=== PATIENT | male | born 1945 ===

== ENCOUNTER 2024-09-13 10:20 | Outpatient (CLI) | payer MEDICARE, OTHER, SELFPAY ==
--- OUTSIDE RECORDS SUMMARY | 2024-09-13 11:55 | XMS_ITS | Clinical Summary ---
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 Gender Identity Not on file Sexual Orientation Not on file Plan of Treatment Health Maintenance Due Date Last Done Comments Hepatitis C Virus (HCV) Screening 1945 TdaP Immunization 1945 Zoster Immunization (1 of 2) 1994 Pneumococcal Immunization (50+ years) (2 of 2 - PPSV23) 06/20/2015 06/20/2014 Respiratory Syncytial Virus (RSV) Immunization (Adult) (1 - 1-dose 75+ series) 11/10/2019 Influenza Immunization (#1) 02/08/202404/09, 07/01/2018 SARS-COV-2 Immunization ( season) 2024 Pneumococcal Immunization Combined Discontinued 06/20/2014 Hepatitis B Immunization Aged Out No longer eligible based on patient's age to complete this topic Meningococcal Immunization (ACWY) Aged Out No longer eligible based on patient's age to complete this topic Rotavirus Immunization Aged Out No lo nger eligible based on patient's age to complete this topic
--- OUTSIDE RECORDS SUMMARY | 2024-09-13 11:55 | XMS_ITS | Continuity of Care Document ---
Author Organization [facility] Address [address] [place] [address] [facility] [address] [place] [address] Phone Care Team Providers Care Cross Tie Turner Name Role Phone Juan Albertosimranalaynayoshi Kapil Unavailable Unavailable Procedures Procedure Date Eye Exam, New Patient Refraction Advance Directives Directive Yes / No Effective Date File Name No Information Encounters Encounter Description Practice Location Reason(s) For Visit Diagnoses Date Provider Providers Copied on Encounter [facility], [address], [place], [place], [id number], tel:[phone] [facility] No Information [address] [facility] [address], [place], [address], [place]. tel:[phone] Referring Provider: Isai Couch, [address] [place] [address], [facility]. tel:[phone] Family History Family Member Type Diagnosis Age At Onset No Information Payers Payer name Insurance type Covered democrat ID Authoriza tion(s) [facility] Commercial CI [id number] Social History Type Description Quantity Date Captured Comments Sex Male Smoking Status No Information Chief Complaint And Reason For Visit No Information Reason For Referral Reason For Referral No Information History Of Present Illness Encounter Date Complaint History Of Prese nt Illness No Information Functional Status Date Functional Assessmen t No Information Instructions Date Instruction Additional Infor mation No Information Assessments Type Assessment Date No Information Patient Care Teams Name Effective Dates (start - stop) Status Members No Information
--- OUTSIDE RECORDS SUMMARY | 2024-09-13 11:56 | XMS_ITS | CONTINUITY OF CARE DOCUMENT ---
Author Name smitha bone Address Unknown Organization [facility] Address [address] [place] [address] [address] [place] [address] Phone [phone] Care Team Providers Care Plaster Maker Name Role Phone Byron Kitchen MD Unavailable [phone] MIHCAEL SHANNON MD Unavailable [phone] SHIVA COHEN, MICHAEL Unavailable PROBLEMS Condition Status Date Provider Notes Aortic stenosis, non-rheumatic active Calli Blackburn INSURANCE PROVIDERS Payer name Policy type / Coverage type [place] red green party ID A[employer] MEDICARE ADVANTAGE HMO-POS HMO [id number] TREATMENT PLAN Date Name Complete Echo
--- OUTSIDE RECORDS SUMMARY | 2024-09-13 11:56 | XMS_ITS | Clinical Summary ---
Author Organization [facility] Address [address] [place] [address] Care Team Providers Care Die Attaching Machine Tender Name Role Phone Chriss Modi MD Primary Care Provider Source Comments [facility],non-owned Affiliates and Associated Physician Practices is amultiple site organization consisting of ambulatory clinics and hospital sitesin [place], [place], [place] and [place]. This disclosure is being madepursuant to the Care Everywhere program and may not contain all information available regarding this patient. Last updated 18.[facility] Allergies Active Allergy Reactions Criticality Noted Date Comments Caffeine Rash Medium 07/04/2010 Hydrochlorothiazide Other 05/05/2007 Lisinopril Dizziness 04/06/2014 Penicillin G Rash Medium 07/04/2010 Penicillins Itching 05/09/2023 Pravastatin Nausea and/or Vomiting 05/10/2003 Terazosin Nausea and/or Vomiting,Dizziness Medium Medications * Be aware that medications may not be up to date on this document. Alwaysverify current medications with the patient. Medication Sig Dispensed Refills Start Date End Date Status melatonin 5 MG tablet Take 1 (one) tablet by mouth at bedtime Active polyethylene glycol 3350 (MiraLax) 17 GM/SCOOP powder Take 0.5 Scoops by mouth once daily 07/30/2022 Active Ferrous Sulfate 324 MG TBEC Take 324 mg by mouth once daily 10/09/2022 Active multivitamin daily tablet Take 1 (one) tablet by mouth once daily 03/18/2023 Active albuterol HFA (Proventil; Ventolin; Proair) 108 (90 Base) MCG/ACT inhaler Take 2 (two) puffs by mouth 4 times daily as needed 02/13/2023 Active allopurinol (Zyloprim) 100 MG tablet Take 1 (one) tablet by mouth once daily 02/13/2023 Active aspirin EC (Ecotrin) 325 MG tablet Take 1 (one) tablet by mouth once daily 07/30/2022 Active atorvastatin (Lipitor) 80 MG tablet Take 1 (one) tablet by mouth once daily 01/29/2023 Active carvedilol (Coreg) 25 MG tablet Take 1.5 (one and one-half) tablets by mouth once daily 08/06/2022 Active fluticasone-salmetero l (Advair/Wixela) 250-50 MCG/ACT inhaler Inhale 1 (one) puff by mouth 2 times daily 11/12/2022 Active gabapentin (Neurontin) 100 MG capsule Take 1 (one) capsule by mouth at bedtime 08/16/2022 Active levothyroxine (Synthroid) 25 MCG tablet Take 1 (one) tablet by mouth every morning Before breakfast 02/13/2023 Active omeprazole (PriLOSEC) 40 MG capsule Take 1 (one) capsule by mouth every morning Before breakfast 10/09/2022 Active sildenafil (Viagra) 100 MG tablet Take 1 (one) tablet by mouth as needed Once weekly (limit of 4 doses in 30 days) 02/26/2023 Active tiotropium (Spiriva Respimat) 2.5 MCG/ACT inhaler Inhale 2 (two) puffs by mouth once daily 11/12/2022 Active lisinopril (Prinivil; Zestril) 10 MG tablet Take 1 (one) tablet by mouth once daily Unsure of dosage Active Active Problems Problem Noted Date Diagnosed Date Hypothyroidism 10/11/2023 10/11/2023 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 Hypertension 10/10/2023 HLD (hyperlipidemia) 10/10/2023 CAD (coronary artery disease) 10/10/2023 History of abdominal aortic aneurysm 10/10/2023 Aortic valve stenosis 06/10/2023 10/11/2023 History of cerebrovascular accident 10/02/2022 10/11/2023 Abdominal aortic aneurysm 05/28/20222023 Gout 11/28/2021 10/11/2023 Social History Tobacco Use Types Packs/Day Years Used Date Smoking Tobacco: Former Cigarettes Q uit: 1994 Smokeless Tobacco: Never Alcohol Use Standard Drinks/Week Comments Yes 14 (1 standard drink = 0.6 oz pure alcohol) Aleks Hair 2 mixed drinks per day 10/10/2023 AUDIT-C Answer Date Recorded Q1: How often do you have a drink containing alcohol? Never 05/09/2023 Q2: How many drinks containi ng alcohol do you have on a typical day when you are drinking? Patient does not drink Q3: How often do you have si x or more drinks on one occasion? Never 05/09/2023 Sex and Gender Information Value Date Recorded Sex Assigned at Not on file Gender Identity Not on file Sexual Orientation Not on file Last Filed Vital Signs Vital Sign Reading Time Taken Comments Blood Pressure 140/67 10/11/2023 12:54 PM CDT Pulse 99 10/11/2023 12:54 PM CDT Temperature 36.3 C (97.4 F) 10/11/2023 12:54 PM CDT Respiratory Rate 18 10/11/2023 12:54 PM CDT Oxygen Saturation 95% 10/11/2023 12:54 PM CDT Inhaled Oxygen Concentration - - Weight 70.4 kg (155 lb 3.2 oz) 10/10/2023 9:45 A M CDT Height 175.3 cm (5' 9 ) 10/10/2023 9:45 AM CDT Body Mass Index 22.92 10/10/2023 9:45 AM CDT Plan of Treatment Health Maintenance Due Date Last Done Comments DTAP/TDAP/TD VACCINES (1 - Tdap) 11/10/1964 PNEUMOCOCCAL VACCINE 50+ (1 of 2 - PCV) 11/10/1963 ZOSTER VACCINE (1 of 2) 1994 Respiratory Syncytial Virus (RSV) Vaccine Pt: or over 60 yrs (1 - 1-dose 75+ series) 11/10/2019 COVID-19 VACCINE (4 - 2023-2 5 season) 2024 04/17/2021, 08/05/2020, 07/15/2020 INFLUENZA VACCINE (#1) 2024 3, 03/18/2022, 03/13/2021 DEPRESSION SCREENING 06/09/2024 MEDICARE AWV CALENDAR YEAR 2024 HEPATITIS B VACCINE Aged Out No longe r eligible based on patient's age to complete this topic HIB VACCINE Aged Out No longer eligi ble based on patient's age to complete this topic HPV VACCINE Aged Out No longer eligi ble based on patient's age to complete this topic MENINGOCOCCAL (Group B) VACCINE SHARED DECISION-MAKING Aged Out No longer eligible based on patient's age to complete this topic MENINGOCOCCAL GROUPS A/C/Y/W VACCINE Aged Out No longer eligible b ased on patient's age to complete this topic Advance Directives * Full Code (Latest Code Status on File) Date Activated Date Inactivated Comments 10/10/2023 5:39 PM 10/11/2023 5:31 PM Care Teams Die Attaching Machine Tender Relationship Specialty Start Date End Date Chriss Modi MD [address] [facility] [id number] PCP - General Radiology 10/10/23
--- OUTSIDE RECORDS SUMMARY | 2024-09-13 11:56 | XMS_ITS | Data Portability ---
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 Chapter 1 of educational DVD was shown. PSG is medically necessary to determine the degree of and management of sleep apnea. We discussed with the patient the impact of weight on: Sleep disordered breathing CVA Hyperlipidemia Hypertension CAD GERD CKD Gout We discussed with the patient the benefit of PAP therapy on: Sleep disordered breathing CVA PTSD Hypertension PASP 39 mmHg GERD CKD ED Educated the patient on sleep hygiene measures. Relaxing rituals to rest easy, understanding foods with positive and negative impact on sleep, creating a peaceful sleep environment, timing of exercise, using herbal sleep aids, and practicing sleep-friendly meditation were covered. To determine how much sleep is needed, the patient will assess where he falls on the spectrum, examine what lifestyle factors such as work schedules and stress are affecting the quality and quantity of sleep. In general, adults need 7-9 hours of sleep. Educated the patient regarding foods that promote sleep. These include but are not limited to cherries, bananas, toast, oatmeal, and warm milk. Educated the patient regarding foods and drinks to avoid before bedtime. These include but are not limited to aged cheese, chocolate, spicy foods, tomato-based sauces, soy, ginseng tea and processed meat. Advocated influenza vaccination annually and pneumonia vaccination JOY. Advocated weight loss through diet and exercise. Patient's ideal body weight according to height and gender is up to 160 lbs. Encouraged patient to adjust caloric intake to maintain/achieve ideal body weight, emphasizing on fruits, vegetables, whole grains, and fat-free or low-fat products. These include lean meats, poultry, fish, beans, eggs, and nuts and foods that are low in saturated fats, trans-fats, cholesterol, salt (sodium), and glycemic index. Stressed the importance of regular exercise up to the patient's capacity limits. In this case, we recommend 20 min daily walking, 2 days a week of resistance training. Patient to monitor BP daily and bring records to PCP for further management. Follow-up: 1 week after diagnostic sleep study [email or web address] Not available 08/17/2024 11:51:19 Plan of Treatment Reminders Order Date Submit Date Provider Last Modified By Organization Details Last Modified Time Details Appointments None recorded. Lab lipid panel, serum 2023 024 [id number] [facility], [address] , [place], [address], 4 16:39:09 CMP, serum or plasma 2023 024 [facility], [address], [place], [address], 4 16:39:09 TSH, serum or plasma 2023 024 [email or web address] [facility], [address], [place], [address], 4 16:39:10 T4, free, serum 2023 024 [facility], [address] , [place], [address], 4 16:39:10 Referral None recorded. Procedures None recorded. Surgeries None recorded. Imaging polysomno gram, diagnosti c, 6 yrs or older - Please call patient to schedule. 2024 025 [facility] ([facility]), [address] [facility] [address], [place], [address], 5 15:12:24 Medication Orders None recorded. Patient TargetsNo targets recorded. Patient Instructions Encounter Date Encounter Id Patient Instructions Last Modified By Organization Details Last Modified Time 06/11/2023 [id number] Follow-up gandhi ry artery disease -hypertension -abdominal aortic aneurysm status post endovascular repair an actual leak seal. -hyperlipidemia-hypo thyroidism. Clinically stable at this time. Will continue on current Rx the cardiac murmur is apparently somewhat new. Will set up for an echocardiogram to further assess. Overall is doing well otherwise. Will continue on current Rx and follow-up in four months. FDA recommendations of a influenza, RSV, COVID, pneumococcal immunizations strongly advised. Portions of the record may have been created with voice recognition software. Occasional wrong-word or esbsa-s-sotn substitutions may have occurred due to the inherent limitations of voice recognition software. Read the chart carefully and recognize, using context, where substitutions have occurred. echocardiogram for possible calcific aortic stenosis. [email or web address] Not available 06/11/2023 15:41:15 10/15/2023 [id number] Follow-up gandhi ry artery disease, hypertension, hyperlipidemia, hypothyroidism, history abdominal aortic aneurysm status post repair and chronic kidney disease. All clinically stable. Will check a CMP, lipid and thyroid panel. Continue on current Rx. Follow-up in four months Next Appointment: 4 Months Approximate Date: 02/12/2024 Portions of the record may have been created with voice recognition software. Occasional wrong-word or nxcpm-s-jmev substitutions may have occurred due to the inherent limitations of voice recognition software. Read the chart carefully and recognize, using context, where substitutions have occurred. [email or web address] Not available 10/15/2023 16:22:26 02/11/2024 [id number] dementia rating scale-2* [email or web address] Not available 02/11/2024 10:49:15 alcohol misuse* Not available 02/11/2024 10:49:15 depression screening* [email or web address] Not available 02/11/2024 10:49:15 Timed Up and Go test (TUG)* Not available 02/11/2024 10:49:15 multi-dimensiona l health assessment questionnaire* [email or web address] Not available 02/11/2024 10:49:15 Personalized [facility] lt Plan and Screening Recommendations Advance Directives - Do you have one? No Advance Directives - Do we have your advance directive on file in your health record? Primary Prevention/Intervent ion (prevents or decreases the chance of common diseases from occurring) Smoking Risk: Non Smoker Alcohol Misuse Screening: Negative Weight: Appropriate Physical activity: Need more exercise/physical activity Nutrition: Good Average Fall Risk (screened today): Low Intermediate Refer to attached handout Preventing Falls: After your Visit Recommend regular use of cane or walker Vaccines Pneumococcal: Ordered Recommended today Recommended today, but you have declined No further needed Influenza: Your next one in the fall of this year Chronic Disease Risks Stroke: Low Risk Intermediate Risk I have no recommendations Acti ve diagnosis, Continue current treatment plan Heart Attack: Low risk Intermediate Risk I have no recommendations Acti ve diagnosis, Continue current treatment plan Clogging of the Arteries: Low risk Intermediate Risk I have no recommendations Acti ve diagnosis, Continue current treatment plan Diabetes: Low Risk I have no recommendations Secondary Prevention/Intervent ion (detects treatable diseases before they may cause symptoms, disability, or ) Prostate Cancer Screening: Colon Cancer Screening: Colonoscopy Date Screening Last Performed: Eye Disease Screening: Dementia Risk: Low I have no recommendations Depression Screening: Negative [email or web address] Not available 02/11/2024 10:43:05 Medicare follow- up examination currently doing well. Is up-to-date on colonoscopy, blood work and other screening studies at [facility]. Currently is doing well. Follow-up for coronary artery disease, aortic valve stenosis, hypertension, abdominal aortic aneurysm as well as GERD and gout. All clinically stable. Is getting blood work performed at [facility] next week and is going to bring us copies of those reports. Otherwise is clinically stable. No interval complaints of any new problems. Follow-up in six months. Next Appointment: 6 Months Approximate Date: 08/09/2024 Portions of the record may have been created with voice recognition software. Occasional wrong-word or rsjjm-v-gpss substitutions may have occurred due to the inherent limitations of voice recognition software. Read the chart carefully and recognize, using context, where substitutions have occurred. [email or web address] Not available 02/11/2024 10:48:58 08/11/2024 [id number] Follow-up gandhi ry artery disease, essential hypertension, hyperlipidemia, hypothyroidism, GERD, chronic obstructive lung disease and chronic kidney disease stage 3 all clinically stable at this time. Is doing reasonably well otherwise. Will continue on current medications. We will try to get the other blood work that was drawn at [facility]. Otherwise doing well. He is scheduled for cataract surgery in the next several weeks on the left eye. See no contraindication for having this done. Follow-up in four months Follow Up: 4 Months Approximate Date: 12/09/2024 Portions of record are template driven. When necessary additional context will be provided. Additionally some portions have been created with voice recognition software. Occasional wrong-word or uyqex-k-xweq substitutions may have occurred due to the inherent limitations of voice recognition software. Read the chart carefully and recognize, using context, where substitutions may have occurred. Created: Michael Couch M.D. 08.11.2024 09:59 AM [email or web address] Not available 08/11/2024 10:59:10 Reason for Referral None Reported. Results Created Date Observation Date Name Description Value Unit Range Abnormal Flag Note LastModifiedBy Organization Detail LastModifiedTime 06/26/19 24 06/25/[address] , [facility] ardio gram No observ ation record ed. [email or web address] [facility] [address], [place], [address], 06/26/2023 14:03:49 Result Notes None recorded. Problems Name Problem SNOMED Code Status Onset Date Resolution Date Notes Provider Name and Address Organization Details Recorded Time Hypercholeste rolemia 86635035 Active Not Available [facility] 3 14:58:58 Gastroesophag eal reflux disease 995134204 Active Not Available [facility] 3 14:58:58 Hypothyroidis m 25323589 Active Not Available [facility] 3 14:58:58 History of polyp of colon 100813779 Active Not Available [facility] 3 14:58:58 History of male erectile disorder 311427605 Active Not Available [employer] 3 14:58:58 Coronary arteriosclero sis 04236122 Active Not Available [facility] 3 14:58:58 Essential hypertension 70256236 Active Not Available [facility] 3 14:58:58 Gout 30742782 Active 2021 Not Available [facility] 3 14:58:59 History of cerebrovascul ar accident 666821434 Active 2022 Michael Couch MD [address], [address], [place], [address] , [employer] 3 15:40:55 Chronic obstructive pulmonary disease 66533597 Active 2022 Michael Couch MD [address], [address], [place], [address] , [employer] 3 15:44:29 Chronic kidney disease stage 3A 746390245 Active 2023 Michael Couch MD [address], [address], [place], [address] , Interview Master 4 16:19:17 Obstructive sleep apnea syndrome 92773088 Active 2024 Carlos Martinez MD [address], [address], [place], [address] , Interview Master 5 12:01:14 Notes:Medical History: 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 Procedures Surgical History Date Name Laterality Status Provider Name and Address Organization Details Recorded Time 4 Medicare Wellness CPT Code, subsequent completed Layla Hernandez RN [facility] 02/11/2024 10:36:21 3 Medicare Wellness CPT Code, subsequent completed Layla Hernandez RN [facility] [employer] [facility] 10/02/2022 15:32:15 Imaging Results Imaging Date Name Status LastModified by Organization Details LastModified Time 06/25/2023 US, echocardiogram completed [email or web address] [facility] [address], [place], [address], 06/26/2023 14:03:49 Procedure Notes None recorded. Medical Equipment None Reported. Allergies Allergen ID Allergen Name Allergen Category Reaction Reaction Severity Criticality Documentation Date Start Date Code Code System Note Provider Name and Address Organization Details Recorded Time 63738 Product containin g penicilli n (product) medicatio n itching Not available Not available 08/07/2022 08806 8001 SNOMED Not Available [facility] 3 15:02:33 78543 caffeine food,medi cation rash Not available Not available 08/07/2022 1886 RxNorm Not Available [facility] 3 15:02:34 29251 hydrochlo rothiazid e medicatio n Not available Not available Not available 08/11/2024 5487 RxNorm Carlos Martinez MD [address] [facility], [place] [address], [place], [address], [employer] [facility] 5 20:45:26 58067 lisinopri l medicatio n Not available Not available Not available 08/11/2024 63767 RxNorm Carlos Martinez MD [address], [facility] [address], [place], [address], [employer] 5 20:45:32 46796 Pravachol medicatio n Not available Not available Not available 08/11/2024 01767 3 RxNorm Carlos Martinez MD [address], [address], [place], [address], [employer] 5 20:45:39 27757 terazosin medicatio n Not available Not available Not available 08/11/2024 32666 RxNorm Carlos Martinez MD [address] [facility], [place], [address], [employer] 5 20:45:46 Medications Name Sig Start Date Stop Date Status Note LastModified by Organization Details LastModified Time Miralax 17 gram oral powder packet Take 1 packet every day by oral route. active Not Available Not Available No t Available amoxicill in 500 mg capsule Take 1 capsule 3 times a day by oral route for 10 days. active Not Available Not Available No t Available Flomax 0.4 mg capsule Take 2 capsules every day by oral route at bedtime. active Not Available Not Available No t Available atorvasta tin 80 mg tablet Take 1 tablet every day by oral route. 2015 active Not Available Not Available Not Avai lable aspirin 325 mg tablet Take 1 tablet every day by oral route. active Not Available Not Available No t Available atenolol 100 mg tablet Take 1 tablet every day by oral route. 05/29 completed Not Available Not Available Not Available ketotifen 0.025 % (0.035 %) eye drops INSTILL 1 DROP INTO AFFECTED EYE(S) BY OPHTHALM IC ROUTE 2 TIMES PER DAY 2015 active Not Available Not Available Not Avai lable Lasix 40 mg tablet Take 1 tablet every day by oral route. 10/14 completed Not Available Not Available Not Available chlorthal idone 25 mg tablet Take 0.5 tablets every day by oral route. 10/02 completed Not Available Not Available Not Available amlodipin e 5 mg tablet Take 1 tablet every day by oral route. 06/11 completed Not Available Not Available Not Available omeprazol e 40 mg capsule,d elayed release Take 1 capsule every day by oral route. active Not Available Not Available No t Available tramadol 50 mg tablet Take 1 tablet every 6 hours by oral route. 06/11 completed Not Available Not Available Not Available sildenafi l 100 mg tablet Take 1 tablet every day by oral route. 2015 active Not Available Not Available Not Avai lable Coreg 25 mg tablet half tablet twice a day active Not Available Not Available No t Available Synthroid 25 mcg tablet Take 1 tablet every day by oral route. active Not Available Not Available No t Available amlodipin e 10 mg tablet Take 1 tablet every day by oral route. active Not Available Not Available No t Available ferrous sulfate 325 mg (65 mg iron) tablet Take 1 tablet every day by oral route. active Not Available Not Available No t Available Neurontin 100 mg capsule Take 1 capsule every day by oral route at bedtime. active Not Available Not Available No t Available docusate sodium 100 mg capsule Take 1 capsule twice a day by oral route. 10/14 completed Not Available Not Available Not Available Tylenol 325 mg tablet Take 2 tablets every 6 hours by oral route. 2015 active Not Available Not Available Not Avai lable folic acid 1 mg tablet Take 1 tablet every day by oral route. 10/02 completed Not Available Not Available Not Available albuterol sulfate HFA 90 mcg/actua tion aerosol inhaler Inhale 2 puffs every 4 hours by inhalati on route. 2013 active Not Available Not Available Not Avai lable lisinopri l 40 mg tablet Take 1 tablet every day by oral route. 02/25 completed Not Available Not Available Not Available Coreg 12.5 mg tablet half tablet twice a day 10/02 completed Not Available Not Available Not Available Adult Low Dose Aspirin 81 mg tablet,de layed release Take 1 tablet every day by oral route. 2015 active Not Available Not Available Not Avai lable rosuvasta tin 20 mg tablet one half tablet every evening 2013 active Not Available Not Available Not Avai lable Multivita min 50 Plus tablet Take 1 tablet every day by oral route. 2021 active Not Available Not Available Not Avai lable Cialis 5 mg tablet Take 1 tablet every day by oral route. 02/25 completed Not Available Not Available Not Available levothyro xine 0.025 tab one tab po qd 10/02 completed 30 minutes before a meal Not Available Not Available Not Available amlodipin e 5 mg one tablet daily 05/29 completed Not Available Not Available Not Available multivita min QD 05/29 completed Not Available Not Available Not Available melatonin 5 mg tablet Take 1 tablet every day by oral route at bedtime. active Not Available Not Available No t Available cholecalc iferol (vitamin D3) 50 mcg (2,000 unit) tablet Take 2 tablets every day by oral route. 2015 active Not Available Not Available Not Avai lable cetirizin e 10 mg capsule Take 1 capsule every day by oral route as directed . 06/11 completed Not Available Not Available Not Available Vitals Date Recorded Body height Body mass index (BMI) Body weight Heart rate Body temperature Oxygen saturation Oxygen saturation in Arterial blood by Pulse oximetry Systolic blood pressure Diastolic blood pressure Provider Name and Address Organization Details Last Updated DateTime 4 170.18 cm 23.3 kg/m2 25730.2 6 g 80 /min 97.2 [degF] 98 % 98 % 140 mm[Hg] 80 mm[Hg] Vicky Benoittonya [facility] 4 15:34:36 Date Recorded Body height Body mass index (BMI) Body weight Heart rate Body temperature Oxygen saturation Oxygen saturation in Arterial blood by Pulse oximetry Systolic blood pressure Diastolic blood pressure Provider Name and Address Organization Details Last Updated DateTime 4 170.18 cm 24.3 kg/m2 77850.8 2 g 63 /min 97.3 [degF] 98 % 98 % 132 mm[Hg] 76 mm[Hg] JOSE GUADALUPE Gibson [facility] [employer] [facility] 4 15:56:08 Date Recorded Body height Body mass index (BMI) Body weight Heart rate Body temperature Oxygen saturation Oxygen saturation in Arterial blood by Pulse oximetry Systolic blood pressure Diastolic blood pressure Provider Name and Address Organization Details Last Updated DateTime 4 170.18 cm 25.4 kg/m2 63461.9 6 g 72 /min 97.9 [degF] 96 % 96 % 130 mm[Hg] 72 mm[Hg] JOSE GUADALUPE Gibson [facility] 4 10:33:02 Date Recorded Pain severity - 0-10 verbal numeric rating [Score] - Reported Provider Name and Address Organization Details Last Updated DateTime 02/11/2024 0 Layla Hernandez RN [facility] 02/11/2024 10:36:34 Date Recorded Body height Body mass index (BMI) Body weight Heart rate Body temperature Oxygen saturation Oxygen saturation in Arterial blood by Pulse oximetry Systolic blood pressure Diastolic blood pressure Provider Name and Address Organization Details Last Updated DateTime 5 170.18 cm 25.9 kg/m2 70741.5 4 g 89 /min 96.97 [degF] 94 % 94 % 122 mm[Hg] 84 mm[Hg] Vicky Kamara [facility] [employer] [facility] 5 10:48:19 Date Recorded Body height Body mass index (BMI) Body weight Heart rate Body temperature Systolic blood pressure Diastolic blood pressure Provider Name and Address Organization Details Last Updated DateTime 170.18 cm 26.5 kg/m2 93379.1 1 g 80 /min 98.2 [degF] 126 mm[Hg] 70 mm[Hg] Janina Bains MA [employer] 11:20:12 Date Recorded Oxygen saturation Oxygen saturation in Arterial blood by Pulse oximetry Heart rate Respiratory rate Provider Name and Address Organization Details Last Updated DateTime 08/17/2024 95 % 95 % 80 /min 15 /min Carlos Martinez MD [address] [facility], [facility] [address], [place], [address], [employer] 12:02:38 Social History Question Answer Notes LastModified by Organization Details LastModified Time Tobacco Smoking Status Never Smoker Not Available [employer] 08/07/2022 14:55:36 Do You Have An Advance Directive? No [email or web address] Information not available 02/11/2024 What Is Your Level Of Alcohol Consumption? Occasional [id number] Information not available 08/07/2022 Are You Blind Or Do You Have Difficulty Seeing? No [email or web address].[id number] Information not available 08/07/2022 In The 14 Days Before Symptom Onset, Have You Had Close Contact With A Laboratory-confi rmed COVID-19 While That Case Was Ill? No [id number] Information not available 08/07/2022 In The 14 Days Before Symptom Onset, Have You Had Close Contact With A Person Who Is Under Investigation For COVID-19 While That Person Was Ill? No [email or web address].[id number] Information not available 08/07/2022 Are You Deaf Or Do You Have Serious Difficulty Hearing? Yes Has Hearing Aids [email or web address] Information not available 02/11/2024 What Type Of Diet Are You Following? REGULAR [id number] [id number] Information not available 08/07/2022 Do You Have An Electrostatic Air Filter? No Information not available 08/17/2024 What Is Your Occupation? Retired [id number] Information not available 08/07/2022 Have You Been Exposed To Chemicals Or Toxins? Yes Information not available 08/17/2024 Have There Been Any Changes To Your Family Or Social Situation? No [email or web address].[id number] [id number] Information not available 08/07/2022 What Is The Fluoride Status Of Your Home? Unknown Information not available 02/11/2024 Are There Any Guns Present In Your Home? Yes [id number] Information not available 08/07/2022 Do You Have A Humidifier? No Information not available 08/17/2024 Do You Use Insect Repellent Routinely? Yes [id number] Information not available 08/07/2022 Where Do You Live? SingleLevelHouse MIGRATION.[id number] [id number] Information not available 08/07/2022 Are You Able To Care For Yourself? Yes [email or web address] Information not available 02/11/2024 Are You Blind Or Do Yo Have Difficulty Seeing? No [email or web address] Information not available 02/11/2024 Are You Deaf Or Do You Have Serious Difficulty Hearing? Yes [email or web address] Information not available 02/11/2024 Live Alone Of With Others? With Others Lives With Grandson [email or web address] Information not available 02/11/2024 Do You Have Moisture Problems In Your Home? No Information not available 08/17/2024 What Was The Date Of Your Most Recent Tobacco Screening? 08/17/2024 Information not available 08/17/2024 Do You Have Any Pets? No [email or web address].[id number] [id number] Information not available 08/07/2022 Do You Use Your Seat Belt Or Car Seat Routinely? Yes MIGRATION.[id number] [id number] Information not available 08/07/2022 Do You Have Smoke And Carbon Monoxide Detectors In Your Home? Yes MIGRATION.0301 [id number] Information not available 08/07/2022 Are You Passively Exposed To Smoke? No MIGRATION.0301 [id number] Information not available 08/07/2022 Are There Any Smokers In Your House? No MIGRATION.0301 [id number] Information not available 08/07/2022 Do You Use Sunscreen Routinely? Yes MIGRATION.0301 [id number] Information not available 08/07/2022 Have You Recently Traveled Abroad? No MIGRATION.0301 [id number] Information not available 08/07/2022 Do You Have Any Dietary Restrictions? No MIGRATION.0301 [id number] Information not available 08/07/2022 Sex: Unknown Functional Status Question Answer Note LastModified by Organizat ion Details LastModified Time Do you have difficulty walking or climbing stairs? Yes uses a cane [id number] Information not available 02/11/2024 Do you have transportation difficulties? No MIGRATION.[id number] Information not available 08/07/2022 Are you able to walk? YESASSIST [email or web address] Information not available 02/11/2024 Do you have difficulty doing errands alone? No MIGRATION.[id number] Information not available 08/07/2022 Are you able to care for yourself? Yes MIGRATION.[id number] Information not available 08/07/2022 Do you have difficulty dressing or bathing? No MIGRATION.009683 [id number] Information not available 08/07/2022 What is your exercise level? Occasional [id number] Information not available 08/07/2022 Mental Status Question Answer Note LastModified by Organizat ion Details LastModified Time Do you have difficulty concentrating, remembering or making decisions? No [id number] Information not available 08/07/2022 Family History Relationship Description Onset Age of this Age Resolved Age Notes LastModified by Organization Details LastModified Time Mother Hypertensive disorder [email or web address] Not available 2024 11:44:59 Mother Dementia [email or web address] Not available 0 08/17/2024 11:45:08 Father Congestive heart failure [email or web address] Not available 2024 11:45:20 Father Diabetes mellitus [email or web address] Not available 2024 11:46:05 Brother Congestive heart failure [email or web address] Not available 2024 11:46:23 Sister Dementia [email or web address] Not available 0 08/17/2024 11:46:32 Son Posttraumati c stress disorder [email or web address] Not available 2024 11:47:04 Medical History Condition Response NERVE DISEASE N BLINDNESS N RHEUMATIC FEVER N KIDNEY STONES N BLADDER PROBLEMS N MRSA N OTHER # 1 N POLIO N LUNG DISEASE/DISORDER N HISTORY OF DRUG ABUSE N RADIATION / CHEMOTHERAPY N COPD N Other # 2 N BLOOD DISEASES N EAR OR HEARING PROBLEMS N MUMPS N SHINGLES N DEPRESSION (INCLUDING POST ) N BOWEL PROBLEMS N STROKE/TIA N ULCERS N BENIGN PROSTATIC HYPERPLASIA N MEASLES N HYPOTENSION N MYOCARDIAL INFARCTION N OBESITY N GERD/NAUSEA N ANEURYSM N URINARY/BLADDER/KIDNEY PROBLEMS N CORONARY ARTERY DISEASE (CAD) Y ADDICTION CONCERNS N Impotence N ENDOMETRIOSIS N USE OF BLOOD THINNERS N SKIN PROBLEMS N GASTROINTESTINAL DISORDER N PARATHYROID DISEASE N PERIPHERAL VASCULAR DISEASE N MUSCLE,JOINT OR BONE PROBLEMS N GASTROINTESTINAL BLEEDING N BLOOD CLOTS N ASTHMA Y CATARACTS N ERECTILE DYSFUNCTION N VARICOSITIES N GI PROBLEMS N CHF N Low Testosterone N INFERTILITY N AIDS/HIV N FRACTURES N CHEMOTHERAPY / RADIATION N LIVER DISEASE N MALE HYPOGONADISM N HYPERTENSION Y Deficiency N TOURETTE'S N ANXIETY DISORDER N BLOOD TRANSFUSION N ANEMIA/BLOOD DISORDER N CHRONIC EAR INFECTIONS N BRONCHITIS N TUBERCULOSIS N GLAUCOMA N FOOT PROBLEM N DIVERTICULITIS N SLEEP APNEA N CHICKENPOX N ALLERGIES/HAYFEVER N INFECTIOUS DISEASE N PROSTATE N HEART ARRHYTHMIA N INSOMNIA N HIGH CHOLESTEROL / HYPERLIPIDEMIA Y EYE PROBLEMS N HYPERTHYROIDISM N EDEMA N CHRONIC PAIN SYNDROME N HYPOTHYROIDISM Y CAROTID BLOCKAGE N CONSTIPATION N BACK / NECK PROBLEMS N HAVE YOU BEEN HOSPITALIZED OR SEEN IN [facility] IN THE PAST YEAR ? N ATHEROSCLEROSIS N BREAST PROBLEMS N DIALYSIS N ECZEMA N HISTORY WITH COMPLICATIONS WITH ANESTHES IA ? N OSTEOPOROSIS N ARTHRITIS N NO SIGNIFICANT PAST MEDICAL HISTORY N APPENDICITIS N DIABETES, TYPE N BAD TEETH N ENT N SEASONAL ALLERGIES N HEARTBURN / REFLUX Y AUTISM SPECTRUM DISORDER (ASD) N HEPATITIS / LIVER DISEASE N GOUT N SLEEP DISORDER N ALZHEIMER'S DISEASE N Brain Problems N DEMENTIA N HERPES N SEIZURES/EPILEPSY N HEADACHES/MIGRAINES N VASCULAR DISEASE N PACEMAKER N Blood Disorder N DIZZINESS N HEART DISEASE/HEART PROBLEMS N KIDNEY DISEASE N MULTIPLE SCLEROSIS N CANCER: SPECIFY N CARDIAC ARRHYTHMIA N ANESTHESIA COMPLICATIONS N ATRIAL FIBRILLATION N Gall Stones N PULMONARY EMBOLISM N AUTOIMMUNE DISEASE N Immunizations Vaccine Type Date Status Note Provider Nam e and Address Organization Details Recorded Time Pneumococcal conjugate PCV20, polysaccharide [id number] conjugate, adjuvant, PF 5 completed Vicky roberto Interview Master 08/11/2024 13:41:32 influenza, unspecified formulation 3 completed Vicky roberto Interview Master 06/11/2023 15:34:56 influenza, unspecified formulation 2 completed [facility] 15:02:26 COVID-19, mRNA, LNP-S, PF, 100 mcg/0.5mL dose or 50 mcg/0.25mL dose 1 completed Not Available [facility] 08/07/2022 15:02:26 Influenza, split virus, quadrivalent, preservative 1 completed Not Available [facility] 08/07/2022 15:02:26 COVID-19, mRNA, LNP-S, PF, 100 mcg/0.5mL dose or 50 mcg/0.25mL dose 1 completed Not Available [facility] 08/07/2022 15:02:26 COVID-19, mRNA, LNP-S, PF, 100 mcg/0.5mL dose or 50 mcg/0.25mL dose 1 completed Not Available [facility] 08/07/2022 15:02:26 Pneumococcal conjugate PCV 13 5 completed Not Available [facility] 08/07/2022 15:02:27 Past Encounters Encounter ID Performer Location Encounter Start Date Encounter Closed Date Diagnosis/Indication Diagnosis SNOMED-CT Code Diagnosis ICD10 Code Diagnosis Note [id number] S_[facility] Internal Med [facility] [address] [address] 05/30/2021 00:00:00 05/30/2021 15:49:06 [id number] _BRANTENA_M IGRATION_ DEFAULT_1 _1 , 06/06/2021 00:00:00 06/06/2021 10:53:21 [id number] S_[facility] Internal Med [facility] [address] [address] 11/28/2021 00:00:00 11/28/2021 14:50:50 [id number] S_[facility] Internal Med [facility] [address] [address] 05/29/2022 00:00:00 05/29/2022 14:47:37 [id number] Michael Couch MD S_[facility] Internal Med [facility] [address] [address] 10/02/2022 15:05:40 10/02/2022 15:50:32 Adult health examination 893447559 Z00.00 Screening for disorder 952235309 Z13.9 Essential hypertension 15390905 I10 Hypercholesterolemia 136 34717 E78.00 Hypothyroidism 30022528 E03.9 Coronary arteriosclerosis 94325568 I25.10 History of cerebrovascular accident 931767481 Z86.73 Gastroesop hageal reflux disease 874395088 K21.9 [id number] Michael Couch MD [facility] Internal Med [facility] [address] [address] 02/05/2023 15:27:58 02/05/2023 15:51:42 Coronary arteriosclerosis 68328196 I25.10 Essential hypertension 61340233 I10 Hypercholesterolemia 136 86877 E78.00 Hypothyroidism 48915092 E03.9 History of polyp of colon 150963771 Z86.010 Chronic ob structive pulmonary disease 33992477 J44.9 [id number] Michael Couch MD [facility] Internal Med [facility] [address] [address] 06/11/2023 15:20:07 06/11/2023 15:45:07 Coronary arteriosclerosis 26485505 I25.10 Essential hypertension 95021413 I10 Abdominal aortic aneurysm 844161406 I71.40 Hypercholesterolemia 136 43209 E78.00 Hypothyroidism 91508780 E03.9 [id number] Michael Couch MD [facility] Internal Med [facility] [address] [address] 10/15/2023 15:34:28 10/15/2023 16:34:39 Coronary arteriosclerosis 91526987 I25.10 Essential hypertension 27943156 I10 Hypercholesterolemia 136 00088 E78.00 Hypothyroidism 11115444 E03.9 Abdominal aortic aneurysm 830795453 I71.40 Chronic ki dney disease stage 3A 296721802 N18.31 [id number] Michael Couch MD [facility] Internal Med [facility] [address] [address] 02/11/2024 10:23:58 02/11/2024 10:52:12 Adult health examination 714943735 Z00.00 Screening for disorder 665456361 Z13.9 Coronary arteriosclerosis 99130898 I25.10 Aortic valve stenosis 60 459430 I35.0 Essential hypertension 67395455 I10 Abdominal aortic aneurysm 299210215 I71.40 Gastroesop hageal reflux disease 865039899 K21.9 Gout 56830633 M10.9 [id number] Michael Couch MD [facility] Internal Med [facility] [address] [place] [address] 0 08/11/2024 10:34:14 08/11/2024 11:05:46 Coronary arteriosclerosis 56694770 I25.10 Essential hypertension 96306170 I10 Chronic ki dney disease stage 3A 127369321 N18.31 Hypercholesterolemia 136 50692 E78.00 Hypothyroidism 53492285 E03.9 Gastroesop hageal reflux disease 301832725 K21.9 Chronic ob structive pulmonary disease 21995392 J44.9 [id number] Carlos Martinez MD [facility] [address] [place] [address] 0 08/17/2024 10:55:12 08/23/2024 16:17:12 Obstructive sleep apnea syndrome 90798719 G47.33 G47.30 G47.36 G47.61 Health Concerns Section Related Observation LastModified by Organization Detai ls LastModified Time None Recorded Concern Status LastModified by Organization Details LastModified Time None Recorded Advance Directives Directive N: Payers Encounter Date Sequence Insurance Name Policy Number Policy Lind Covered Member ID Lind Member ID Guarantor Name 06/11/2023 1 [facility] (MEDICARE REPLACEMENT/A DVANTAGE - HMO) [id number] Axel Baker [id number] Axel Baker 10/15/2023 1 [facility] (MEDICARE REPLACEMENT/A DVANTAGE - HMO) [id number] Axel Baker [id number] Axel Baker 02/11/2024 1 [facility] (MEDICARE REPLACEMENT/A DVANTAGE - HMO) [id number] Axel Baker [id number] Axel Baker 08/11/2024 1 [facility] (MEDICARE REPLACEMENT/A DVANTAGE - HMO) [id number] Axel Baker [id number] Axel Baker 08/17/2024 [facility] Axel Baker [id number] Axel Baker Notes Date Note Type Note Provider Name and Address Organization Details Recorded Time 4 text/html Patient Name: Axel Christinaate Of Service: Friday ( 06.11.2023 ): 1945 Age: 77 Vital Signs:Blood Pressure: Sitting Rt. Arm 140/80Pulse: Sitting 80 /min and RegularRespiratory Rate: 12Height 67 in or 1.7 mWeight 149 lb or 67.6 kgBMI 23.3Temperature: 97.2 F or 36.2 CPulse Oximetry: 98 % at rest on no oxygen Chief Complaint: Addressed in HPI Problems or conditions discussed in the HPI were the only ones reviewed during the encounter.Only social and family history addressed in the HPI were reviewed during this encounter. Attendant(s): NoneConstitutional and Systemic Symptoms:none Medication Reconciliation: from medication list. History of Present Illness #1. Coronary Artery Disease: There has been no change in frequency - duration - intensity in frequency, duration or intensity of chest pain. Other Complaints: none The frequency of anginal attacks is none at all. Additional Symptoms: none Therapy reviewed regarding cardiovascular management includes Amlodipine, Aspirin, Coreg and Lipitor #2. Essential Hypertension: Stage: Stage I Interval Neurological Complaints no headaches, dizziness, weakness, visual changes, ataxia, aphasia and apraxia. No shortness of breath, orthopnea or cardiovascular symptoms. No other symptoms related to end organ damage. Pressure has been under excellent control. Currently normal. No other end organ symptoms or findings. Therapy reviewed regarding management of hypertension and includes salt restriction and Amlodipine and Coreg. #3. Type II Hypercholesterolaemia: Currently taking medication and tolerating well. No interval complaints of any muscle pain or arthralgia. No significant liver changes with medications. Last lipid panel: excellent control. Therapy reviewed regarding treatment of cholesterol management and include diet and Lipitor. #4. AAA: History of abdominal aortic aneurysm. No interval complaints of any unexplained abdominal or back pain. No syncope or pre syncope. Denies any history of any increase pulsation in the abdomen. No new back pain. The last aortic measurement was done several weeks ago. There has been no significant change in diameter. Is currently taking beta blockers. #5. Hx of hypothyroidism currently stable. Heat intolerance: no Fatigue: no Weight gain: no Difficulty concentrating: no Muscle Symptoms: none Skin Texture: normal Skin Color: normal Currently taking synthroid.Medication List Reviewed and Reconciled 4Aspirin 81 MG One Daily For HeartLevothyroxine 0.025 MG (TABLET - ORAL) Once DailyNeurontin 100 MG CAPSULE One At BedtimeMelatonin 5 MG One At BedtimeDocusate 100 MG CAPSULE One Twice A DayMiralax DailyFlomax .4 MG CAPSULE 2 At BedtimeAmlodipine 10 MG TABLET One DailyProair Hfa 0.09 MG /INH (AEROSOL, METERED - INHALATION) Two Puffs Qid For WheezingAllopurinol 100 MG (TABLET - ORAL) QdLipitor 80 MG (TABLET - ORAL) QdSymbicort 0.16 MG/INH-0.0045 MG/INH (AEROSOL, METERED - INHALATION) 2 Puffs BidViagra 100 MG (TABLET - ORAL) PrnOmeprazole 40 MG CAPSULE, DELAYED RELEASE One DailyLasix 40 MG TABLET Once DailyFerrous Sulfate 325 MG TABLET Once DailyCoreg 25 MG TABLET, FILM COATED Halft Tablet Twice A DayMultivitamin DailyADRs List Reviewed 4Pravachol Nausea, Vomiting And Abdominal PainVaccination and Nervsasgqyiq3484-09 Mfljeqvrz0201-62 Covid Appcmn7654-44 Zzjltkqva3563-79 Prevnar 13 GcSurgical HistoryRight Hemicolectomy, Ventral Hernia, Coronary Stent (right coronary), Thyroid SurgeryPreventative Testing Confirmed by Our Pshhcke3112/05/2022 HAI 5.6012/28/2014 COLONOSCOPY (5 YEARS) PSASocial HistorySOCIAL HISTORY:Smoking Hx: 1.5 packs of cigarettes per day for 30 years.Quit 1990 Drinking Hx: Decaffeinated , 1 Cup of coffee perday, < 6 cans of soft drinks per day.Exercise: InfrequentlySexual Hx: 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 This represents approximately a 8.7% change in weight. Weight change attributable to lifestyle changes. Vital Signs:Blood Pressure: Sitting Rt. Arm 130/72Pulse: Sitting 72 /min and RegularRespiratory Rate: 14Height 67 in or 1.7 mWeight 162 lb or 73.5 kgBMI 25.4Temperature: 97.9 F or 36.6 CPulse Oximetry: 96 % at rest on no oxygen Chief Complaint: Addressed in HPI Problems or conditions discussed in the HPI were the only ones reviewed during the encounter.Only social and family history addressed in the HPI were reviewed during this encounter. Attendant(s): NoneConstitutional and Systemic Symptoms:none Medication Reconciliation: from medication list. [id number]: Echocardiogram estimated ejection fraction 60%. Mild mitral annular calcification. Trace mitral valve regurgitation. Aortic valve calcification without stenosis normal-appearing tricuspid valve with moderate tricuspid regurgitation. Right ventricular systolic pressure consistent with some pulmonary hypertension estimated at 39 mmHg. Trace pulmonic valve regurgitation noted. History of Present Illness #1. Medicare wellness evaluation risk assessment stable. No interval complaints any new problems. Gets off his screening studies done at [facility] is up-to-date on all screening studies and interventions. #2. Coronary Artery Disease: There has been no change in frequency - duration - intensity in frequency, duration or intensity of chest pain. Other Complaints: none The frequency of anginal attacks is none at all. Additional Symptoms: none Therapy reviewed regarding cardiovascular management includes Coreg and Losartan Potassium #3. Aortic Stenosis: Symptoms: no cardiac symptoms Hx of calcified aortic stenosis. No interval complaints of any chest pain, shortness of breath, palpitations or syncope. No palpitations. No change in exercise tolerance. Severity moderate. Last echocardiogram was Done by Cardiology at [facility].. Followed by Cardiology: yes Currently does not need a repeat echocardiogram. #4. Essential Hypertension: Stage: Stage I Interval Neurological Complaints no headaches, dizziness, weakness, visual changes, ataxia, aphasia and apraxia. No shortness of breath, orthopnea or cardiovascular symptoms. No other symptoms related to end organ damage. Pressure has been under excellent control. Currently normal. No other end organ symptoms or findings. Therapy reviewed regarding management of hypertension and includes salt restriction and Coreg and Losartan Potassium. #5. Type II Hypercholesterolaemia: Currently taking medication and tolerating well. No interval complaints of any muscle pain or arthralgia. No significant liver changes with medications. Last lipid panel: fair control. Therapy reviewed regarding treatment of cholesterol management and include diet and Lipitor. #6. AAA: History of abdominal aortic aneurysm. No interval complaints of any unexplained abdominal or back pain. No syncope or pre syncope. Denies any history of any increase pulsation in the abdomen. No new back pain. The last aortic measurement was done several months ago. There has been no significant change in diameter. Is currently taking beta blockers. Procedural Intervention: EVAR. #7. Hx of esophageal reflux currently stable. Hx of Complications: none The severity, duration and intensity of symptoms have improved. Frequency: most meals Treatment consists medications taken on a regular basis. Current therapy includes Omeprazole. There has been no nausea, eructation, vomiting, hematemesis, dysphagia, velopharyngeal insufficiency and odynophagia. No change in he frequency or intensity of symptoms. Has had no melena. Has had no . Discussed use of H2 antagonists and the possibility of trying to reduce the frequency of the use of any PPI inhibitors and try H2 antagonists to see if symptoms can be controlled with lease intensive therapy since a number of complications are associated with chronic prolonged use of PPI inhibitors. #8. Gouty Arthritis: History of gouty arthritis. Has had no attacks since last examination. Currently taking allopurinol. No interval complaints of any new joint involvement. Active Medication ListAspirin 81 MG One Daily For HeartLevothyroxine 0.025 MG (TABLET - ORAL) Once DailyNeurontin 100 MG CAPSULE One At BedtimeMelatonin 5 MG One At BedtimeMiralax DailyProair Hfa 0.09 MG /INH (AEROSOL, METERED - INHALATION) Two Puffs Qid For WheezingAllopurinol 100 MG (TABLET - ORAL) QdLipitor 80 MG (TABLET - ORAL) QdSymbicort 0.16 MG/INH-0.0045 MG/INH (AEROSOL, METERED - INHALATION) 2 Puffs BidViagra 100 MG (TABLET - ORAL) PrnOmeprazole 40 MG CAPSULE, DELAYED RELEASE One DailyFerrous Sulfate 325 MG TABLET Once DailyCoreg 25 MG TABLET, FILM COATED Halft Tablet Twice A DayMultivitamin DailyLosartan Potassium 50 MG TABLET 1/2 Tab DailyTamsulosin Hydrochloride .4 MG CAPSULE One Hs Adverse Drug Reactions ReviewedPravachol Nausea, Vomiting And Abdominal Pain Vaccination and Jotdzadzayhp4525-77 Wgcecmduf1125-09 Covid Huhmwc5619-32 Byhtwcutx8220-93 Prevnar 13 Gc Surgical Jrbanzh5065-09 Leaking AAA Kifsba3242-62 Leaking AAA Vcrvuu9595-75 Endovascular Repair ITX4477-92 Right Cpxtyrxffiqhd4232-34 Ventral Dnckme3557-22 Coronary Stent (right coronary)1985- Thyroid Surgery Preventative Testing( ) 12/05/2022 HAIC 5.6(X) 12/28/2014 Colonoscopy (5 Years) 12/29/2019(X) 10/26/2014 PSA 10/26/2016 Social HistorySOCIAL HISTORY:Smoking Hx: 1.5 packs of cigarettes per day for 30 years.Quit 1990 Drinking Hx: Decaffeinated , 1 Cup of coffee perday, < 6 cans of soft drinks per day.Exercise: InfrequentlySexual Hx: 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 This represents approximately a 2.2% change in weight. Weight change attributable to lifestyle changes. Vital Signs:Blood Pressure: Sitting Rt. Arm 122/84Pulse: Sitting 89 /min and RegularRespiratory Rate: 16Height 67 in or 1.7 mWeight 165.5 lb or 75.1 kgBMI 25.9Temperature: 97 F or 36.1 CPulse Oximetry: 94 % at rest on no oxygen Chief Complaint: Addressed in HPI Problems or conditions discussed in the HPI were the only ones reviewed during the encounter.Only social and family history addressed in the HPI were reviewed during this encounter. Attendant(s): NoneConstitutional and Systemic Symptoms:none Medication Reconciliation: from medication list. [id number]: Echocardiogram estimated ejection fraction 60%. Mild mitral annular calcification. Trace mitral valve regurgitation. Aortic valve calcification without stenosis normal-appearing tricuspid valve with moderate tricuspid regurgitation. Right ventricular systolic pressure consistent with some pulmonary hypertension estimated at 39 mmHg. Trace pulmonic valve regurgitation noted. History of Present Illness #1. Coronary Artery Disease: There has been minimal change in frequency, duration or intensity of chest pain. Other Complaints: none The frequency of anginal attacks is none at all. Additional Symptoms: none Therapy reviewed regarding cardiovascular management includes Aspirin, Coreg, Lipitor and Losartan Potassium #2. Essential Hypertension: Stage: Stage I Interval Neurological Complaints no headaches, dizziness, weakness, visual changes, ataxia, aphasia and apraxia. No shortness of breath, orthopnea or cardiovascular symptoms. No other symptoms related to end organ damage. Pressure has been under excellent control. Currently normal. No other end organ symptoms or findings. Therapy reviewed regarding management of hypertension and includes salt restriction and Coreg and Losartan Potassium. #3. Type II Hypercholesterolaemia: Currently taking medication and tolerating well. No interval complaints of any muscle pain or arthralgia. No significant liver changes with medications. Last lipid panel: fair control. Therapy reviewed regarding treatment of cholesterol management and include diet and Lipitor. #4. Hx of hypothyroidism currently stable. Heat intolerance: no Fatigue: no Weight gain: no Difficulty concentrating: no Muscle Symptoms: none Skin Texture: normal Skin Color: normal Currently taking synthroid. #5. History of chronic renal failure currently doing well. Currently is followed by a manager of warehouse. Stage: CKD-3a. Albumin Stage: A1. There has been no change in urine output or color. No fever or chills.#6. Chronic obstructive lung disease clinically stable. Currently taking Symbicort as well as ProAir inhaler doing well. No change in overall control status or exercise tolerance.#7. History of GERD currently taking omeprazole no change in frequency, duration, intensity or frequency of any reflux symptomatology. He is continue on the omeprazole and doing well. Active Medication ListAspirin 81 MG One Daily For HeartLevothyroxine 0.025 MG (TABLET - ORAL) Once DailyNeurontin 100 MG CAPSULE One At BedtimeMelatonin 5 MG One At BedtimeMiralax DailyProair Hfa 0.09 MG /INH (AEROSOL, METERED - INHALATION) Two Puffs Qid For WheezingAllopurinol 100 MG (TABLET - ORAL) QdLipitor 80 MG (TABLET - ORAL) QdSymbicort 0.16 MG/INH-0.0045 MG/INH (AEROSOL, METERED - INHALATION) 2 Puffs BidViagra 100 MG (TABLET - ORAL) PrnOmeprazole 40 MG CAPSULE, DELAYED RELEASE One DailyFerrous Sulfate 325 MG TABLET Once DailyCoreg 25 MG TABLET, FILM COATED Halft Tablet Twice A DayMultivitamin DailyLosartan Potassium 50 MG TABLET 1/2 Tab DailyTamsulosin Hydrochloride .4 MG CAPSULE One Hs Adverse Drug Reactions ReviewedPravachol Nausea, Vomiting And Abdominal Pain Vaccination and Immunization(X) 2022- INFLUENZA( ) 2014-06 PREVNAR 13 GC(X) 2020- COVID PFIZER( ) 2017- PNEUMOVAX( ) 2024- PREVNAR 20 Surgical [id number] Leaking AAA [id number] Leaking AAA [id number] Endovascular Repair [id number] Right [id number] Ventral [id number] Coronary Stent (right coronary)1985- Thyroid Surgery Preventative Testing( ) 12/05/2022 HAIC 5.6(X) 12/28/2014 Colonoscopy (5 Years) 12/29/2019(X) 10/26/2014 PSA 10/26/2016 Social HistorySOCIAL HISTORY:Smoking Hx: 1.5 packs of cigarettes per day for 30 years.Quit 1990 Drinking Hx: Decaffeinated , 1 Cup of coffee perday, < 6 cans of soft drinks per day.Exercise: InfrequentlySexual Hx: Sexually 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 Snoring: light, 2000sSnorting: noChoking: noCoughing: yesGasping: noGagging: noSighing: noWitnessed apnea: yesTwitching or jerking of leg(s), arm(s), body, head: yesTeeth grinding: n/aTeeth clenching: n/aSleeptalking: noSleepwalking: noSleep crying: noBedwetting: noTongue/lip/gum/cheek biting: noSleeping with open mouth: yesSleep paralysis: noHypnagogic hallucinations: noHypnopompic hallucinations: noVivid dreams: yesDifficulty with sleep onset: noDifficulty with sleep maintenance: yesSleep interruptions: dreamsPatient wakes up with: fatigue, xerostomia, hoarse voice, mobility impairment, dexterity impairmentDaytime cataplexy: noMorning hypersomnolence: yesAfternoon hypersomnolence: yesCaffeine sources in diet: tea 4 oz per day, soda 1 can per week Associated medical and psychiatric conditions:Congestive heart failure: noCoronary artery disease: yesMyocardial infarction: noHypertension: yesStroke: yesBronchial asthma: noChronic obstructive pulmonary disease: noDepression: noBipolar disorder: noAnxiety: noPanic disorder: noPosttraumatic stress disorder: yesAttention deficit and hyperactivity disorder: noObsessive Compulsive disorder: noSchizophrenia: noSchizoaffective disorder: noPersonality disorder: noChronic analgesic use: noChronic sedative/hypnotic use: no EPWORTH SLEEPINESS SCALE (ESS) CHANCE OF DOZING SCORE0 = would never doze1 = slight chance of dozing2 = moderate chance of dozing3 = high chance of dozing SITUATION AND CHANCE OF DOZINGSitting and reading - 2Watching television - 2Sitting inactive in a public place (e.g. a theater or meeting) - 0As a passenger in a car for an hour without a break - 0Lying down to rest in the afternoon when circumstances permit - 3Sitting and talking to someone - 1Sitting quietly after lunch without alcohol - 2In a car, while stopped for a few minutes in the traffic - 0TOTAL SCORE 10Subjectively, patient has a moderate chance of dozing. Carlos Martinez MD [address] [place] [address], [facility] [address], [place], [address], [facility] 08/17/2024 12:04:06
[2024-10-05 14:57] VITALS: BMI 25.8
--- NOTE | 2024-10-05 14:57 | WPDSLEEPSTUD ---
Sleep Study Date of Study: 09/13/24 Ordering Provider: Carlos MartinezMD Interpreting Physician: Delaney Pollard DO Sleep Study Type: Polysomnogram Height: 1.7 m Weight: 74.843 kg Body Mass Index: 25.8 Neck Circumference (inches): 16 Plush: 10 Reason for Sleep Study Daytime hypersomnia Sleep History The patient is a 78-year-old male who had a sleep study ordered by his market relationship manager for evaluation of sleep apnea. The patient denies awakening from sleep short of breath. He denies awakening at night with heartburn, belching, or cough. He occasionally snores, but it is never loud enough that others complain. He occasionally has trouble sleeping when he has a cold. He denies waking up gasping for air throughout the night. He denies having breathing problems at night observed by himself or others. He rarely sweats excessively at night. He denies having heart palpitations or irregular heartbeats during the night. He occasionally falls asleep during the day, but never while driving. He denies sleep paralysis, cataplexy, and hypnagogic-hypnopompic hallucinations. He denies having trouble at school or work due to sleepiness. He denies feeling afraid of going to sleep. He occasionally has nightmares. He occasionally remembers his dreams. He rarely has thoughts racing through his mind. He occasionally feels sad, depressed, and anxious. He frequently has muscular tension. He denies noticing parts of his body jerk. He rarely kicks during the night. He occasionally has crawling and aching feelings in his legs and occasionally has leg pain during the night. He denies grinding his teeth during sleep and denies awakening with morning jaw pain. He is occasionally bothered by pain during the day and occasionally awakened by pain during the night. He occasionally wakes up feeling stiff in the morning. He occasionally wakes up with sore or achy muscles. He denies waking up with pain in the neck, spine, and other joints. He goes to bed at 11 p.m. on weekdays and at midnight on the weekends. The amount of time it takes for him to fall asleep is variable. He wakes up once throughout the night to urinate and is able to fall back asleep within 20 to 30 minutes. He wakes up at 8 a.m. on weekdays and at 9 a.m. on the weekends. He typically gets 6.5 hours of sleep per night. He will stay in bed for 1 hour after waking up in the morning. He currently lives with his grandson. He denies consuming any caffeinated beverages within 2 hours of bedtime. He denies engaging in physical exercise before bedtime. He will watch television before falling asleep. He will take naps in the afternoon or the evening, and they are refreshing. He denies consuming any caffeinated beverages throughout the day. He denies tobacco use. He denies recreational drug use. Sleep Procedure A full night polysomnogram using the Smart Lunches multi-channel system recorded the standard physiologic parameters including EEG, EOG, submentalis EMG, anterior tibialis EMG, EKG, body position, nasal and oral airflow using nasal pressure sensor and thermistor.? Respiratory parameters of chest and abdominal movements were recorded with Respiratory Inductance Plethysmography belts. Oxygen saturation was recorded by pulse oximetry. Video monitoring was also performed. Sleep stages, periodic limb movements, and EEG arousals were scored in 30 second epochs according to the criteria of the AASM Scoring Manual. The Apnea-Hypopnea Index was calculated using CMS guidelines for definition of hypopnea with 4% O2 desaturations while scoring respiratory events. Sleep Architecture The total recording time was 401.1 minutes.? The total sleep time was 311.5 minutes. Sleep latency was 15.4 minutes. REM latency was 73.5 minutes. Sleep efficiency was 77.7%. The patient had 32 awakenings for an awakening index of 6.2. Wake after sleep onset time was 74.5 minutes. The patient spent 14.5 minutes, 4.7% of total sleep time in Stage N1. The patient spent 250.5 minutes, 80.4% in Stage N2. The patient spent 0.0 minutes, 0.0% in Stage N3. The patient spent 46.5 minutes, 14.9% in Stage REM sleep. Respiratory Analysis The patient had 75 hypopneas, 25 obstructive apneas, 3 mixed apneas, and 1 central apnea for an overall Apnea Hypopnea Index of 20.0. The REM Apnea Hypopnea Index was 28.4. The NREM Apnea Hypopnea Index was 18.6. The patient had a Central Apnea Hypopnea Index of 0.2. There was no evidence of Ryan-Figueroa Respirations. Arousals There were 70 total arousals for an arousal index of 13.5. There were 36 spontaneous arousals for an index of 6.9. There were 17 arousals due to respiratory events for an index of 3.3. There were 13 arousals due to periodic limb movements for an index of 2.5.? There were 5 arousals due to isolated limb movements for an index of 1.0. Periodic Limb Movements The patient had 18 isolated limb movements with an index of 3.5. The patient had 147 periodic limb movements with an index of 28.3, which is elevated (normal < 15). Patient had a total of 165 limb movements with a total limb movement index of 31.8. Oximetry Data The patient had an average oxygen saturation of 92.0% in sleep with a minimum oxygen saturation of 83.0% and a maximum oxygen saturation of 98.0%. The patient had 108 oxygen desaturations that were 4% or greater resulting in an Oxygen Desaturation Index of 20.8.? The patient spent 11.5 minutes, 2.9% of total sleep time with an oxygen saturation below 88%. Snoring Profile Mild to moderate snoring was present throughout the study. Cardiac Profile The EKG showed normal sinus rhythm with frequent PVCs.?The patient had an average pulse rate of 65.9 bpm with a minimum pulse of rate of 53.0 bpm and a maximum pulse rate of 88.0 bpm.? EEG Profile No signs of seizure activity seen. Assessment and Plan Assessment and Plan (1) NICK (obstructive sleep apnea): Code(s): G47.33 - Obstructive sleep apnea (adult) (pediatric) Status: Acute Assessment and Plan: The patient had an overall AHI of 20.0 with desaturation down to 83%. This is consistent with moderate sleep apnea. I recommend that the patient have a CPAP Titration study with the use of a hypnotic to ensure we obtain enough sleep data and find an optimal pressure setting. A mandibular advancement device is also an acceptable treatment option. The patient had a significant number of limb movements during the study with the majority being periodic in nature. Approximately 10% of the periodic limb movements caused arousals in the patient's sleep.The patient's sleep history does not suggest Restless Leg Syndrome. I recommend that the patient have a serum ferritin drawn for evaluation of iron deficiency anemia. Data The data obtained during this sleep study is adequate for interpretation. Certification This sleep study has been reviewed by a board certified sleep medicine physician.
== END 2024-09-14 06:24 | disposition home or self-care (01) ==
LOC: ANHCSM 10:27
PROVIDERS: PCP Internal Medicine; Visit Provider Internal Medicine Pulmonary Disease
DX: G47.33 Obstructive sleep apnea (adult) (pediatric) (principal)
CPT/HCPCS: 95810